=== PATIENT | female | born 1940 | race American Indian/Alaskan Native ===

== ENCOUNTER 2018-04-26 10:04 | Outpatient (CLI) | payer MEDICARE ==
--- NOTE | 2018-04-26 10:50 | Cat Scan Report ---
CT HEAD WITHOUT CONTRAST: HISTORY: Headache disorder. TECHNIQUE: Sequential CT images without contrast. FINDINGS: Images obtained show bilateral prominence of the sulci and ventricles. There are no abnormal intra- or extra-axial blood or fluid collections. There are no focal masses or evidence of mass effect. The murray white matter differentiation appears within normal limits. Regions of periventricular decreased attenuation are consistent with microangiopathic ischemic disease. The posterior fossa structures including the fourth ventricle, cerebellum, and brainstem appear normal. IMPRESSION: Evidence of atrophy and microangiopathic ischemic disease. No acute intracranial process noted. No change since 03/17/16.
== END 2018-04-26 10:05 | disposition home or self-care (01) ==
LOC: CT 10:04
PROVIDERS: ATTEND Internal Medicine
DX: I67.82 Cerebral ischemia (principal); G31.9 Degenerative disease of nervous system, unspecified
CPT/HCPCS: 70450

== ENCOUNTER 2019-09-16 10:46 | Outpatient (CLI) | payer MEDICARE ==
--- NOTE | 2019-09-16 11:43 | XRay Report ---
ABDOMINAL SERIES WITH CHEST X-RAY ONE VIEW HISTORY: Diarrhea COMPARISON: None. FINDINGS: Single view of the chest demonstrates an ectatic aorta with mild calcifications. Heart size is normal . The lungs are clear. Right shoulder arthroplasty changes are noted. Supine and upright views of the abdomen demonstrate an unremarkable bowel gas pattern. No evidence fo r obstruction, fluid levels or free air. IMPRESSION: No acute process. Signer Name: Ed Ponce Jr, MD Signed: 09/16/2019 11:38 AM Workstation Name: [id number]
== END 2019-09-16 10:47 | disposition home or self-care (01) ==
LOC: XRAY 10:46
PROVIDERS: ATTEND Internal Medicine
DX: I70.0 Atherosclerosis of aorta (principal); I77.819 Aortic ectasia, unspecified site; R19.7 Diarrhea, unspecified
CPT/HCPCS: 74022

== ENCOUNTER 2021-12-09 12:18 | Outpatient (CLI) | payer MEDICARE ==
--- NOTE | 2021-12-09 14:08 | XRay Report ---
PELVIS AND LEFT INDICATION / CLINICAL INFORMATION: LEFT HIP PAIN. COMPARISON: None available. FINDINGS: BONES / JOINT(S): No acute fracture or subluxation. There is advanced osteoarthrosis of the hips bila terally greater on the left with bone on bone appearance. Osteopenia is noted. Degenerative changes a re also noted at the SI joints and pubic symphysis. SOFT TISSUES: No significant abnormality. ADDITIONAL FINDINGS: None. IMPRESSION: No acute findings. Advanced osteoarthrosis of the hips bilaterally left greater than right with bone on bone appearance. Signer Name: Duc Salguero MD Signed: 12/09/2021 2:04 PM Workstation Name: [id number]
--- NOTE | 2021-12-09 14:10 | XRay Report ---
LUMBAR SPINE 3 VIEWS INDICATION: LOW BACK PAIN. COMPARISON: None. FINDINGS: No acute, displaced fracture is seen. There is grade 1 anterolisthesis of L4 on L5 which may be due to facet arthropathy. There is advanced discogenic degenerative change at L4-5. There is moderate discogenic degenerative c hange at the lower thoracic spine and thoracolumbar junction. Lower lumbar facet arthropathy is noted . Degenerative changes are noted at the SI joints bilaterally. IMPRESSION: 1. No acute findings. 2. Degenerative changes, as above. Signer Name: Duc Salguero MD Signed: 12/09/2021 2:05 PM Workstation Name: [id number]
== END 2021-12-09 12:19 | disposition home or self-care (01) ==
LOC: XRAY 12:18
PROVIDERS: ATTEND Internal Medicine
DX: M47.816 Spondylosis without myelopathy or radiculopathy, lumbar region (principal); M16.12 Unilateral primary osteoarthritis, left hip
CPT/HCPCS: 72100